=== PATIENT | female | born 1965 | race Caucasian/White ===

== ENCOUNTER 2016-11-21 09:23 | Outpatient (CLI) | payer BC ==
[2016-11-21 09:56] LABS: Bilirubin Negative (Negative); Blood, Urine Trace (Negative); Clarity Clear (Clear); Glucose, Urine (Dipstick) Negative (Negative); Leukocyte Negative (Negative); Nitrite Negative (Negative); Protein, Urine (Dipstick) Negative (Neg-Trace); Urobilinogen 0.2 mg/dL (0.2-1.0)
[2016-11-21 10:00] LABS: Hemoglobin 14.7 g/dL (12.0-16.0); Mean Corpuscular HGB CONC 33.7 g/dL (32.0-36.0); Mean Corpuscular Volume 91.8 fl (81.0-99.0); Mean Platelet Volume 6.2 fL (7.4-10.4); Platelet Count 273 thou/uL (130-400); RBC Distribution Width 12.1 % (11.5-14.5); Red Blood Cell (RBC) Count 4.74 mill/uL (4.20-5.40); White Blood Cell (WBC) Count 8.7 thou/uL (4.8-10.8)
[2016-11-21 10:02] LABS: Squamous Epithelial 0-3 HPF (0-3); WBC/HPF 0-3 HPF (0-3)
[2016-11-21 10:03] LABS: Bacteria/HPF 1+ HPF (None Seen)
[2016-11-21 10:07] LABS: ALT (SGPT) 26 U/L (8-55); AST (SGOT) 17 U/L (5-34); Albumin 4.2 g/dL (3.5-5.0); Alkaline Phosphatase 61 U/L (40-150); Anion Gap 14 mmol/L (10-20); BUN (Urea Nitrogen) 9 mg/dL (7.0-18.7); Bilirubin, Total 0.4 mg/dL (0.2-1.2); Calc. Creatinine Clearance 0 mL/min (70-130); Calcium 8.9 mg/dL (7.8-10.44); Carbon Dioxide 25 mmol/L (22-29); Chloride 106 mmol/L (98-107); Estimated GFR-MDRD 86; Globulin 3.1 g/dL (2.4-3.5); Glucose 98 mg/dL (70-105); Protein, Total 7.3 g/dL (6.0-8.3); Sodium 141 mmol/L (136-145)
--- NOTE | 2016-11-21 22:59 | CT ---
CT ABDOMEN AND PELVIS WITH CONTRAST 11/21/16 No prior scans were available for comparison. Spiral CT of the abdomen and pelvis was done after giv ing oral and IV contrast. Axial slices were acquired, then coronal and sagittal reconstructions were done. The lung bases are clear. The liver, spleen, and pancreas were unremarkable in appearance. The patie nt has had a prior cholecystectomy. The common bile duct seems slightly wider than is usually seen, measuring 1.3 cm in diameter as it approaches the pancreatic head. No abnormalities of the head were seen. No mass or hydronephrosis was seen in the kidneys. The aorta is normal in caliber. No free air or free fluid was seen in the abdomen. The bowel wall in the left colon through the sigm oid region seems slightly thicker than expected and there diverticula present. There is one area meaghan r the lower descending colon around the level of the iliac crest on the left where there might be a very small amount of pericolonic stranding, but the finding is borderline to suggest diverticulitis. The appearance of the bowel is such that it would not surprise me if she had had diverticulitis in the past. CT of the pelvis shows a 3 cm cystic structure in the left adnexa. An elective ultrasound should be done to better characterize this. Otherwise, no pelvic masses or fluid collections were seen. IMPRESSION: 1. Diverticulosis with mild diffuse thickening of bowel wall on the left side. There was one eq uivocal area for some stranding around colon at the junction of the lower descending colon and sigmo id. This could be indicative of minimal diverticulitis or could be stranding from prior inflammatory events. 2. Mildly prominent common bile duct without any overt causes. 3. 3 cm cystic area in the left adnexa. Ultrasound recommended to better characterize this. Code T POS: HOME
== END 2016-11-21 09:24 | disposition home or self-care (01) ==
LOC: BURCT 09:23
PROVIDERS: ATTEND Internal Medicine Gastroenterology
DX: R10.30 Lower abdominal pain, unspecified (principal); K57.30 Diverticulosis of large intestine without perforation or abscess without bleeding; N83.8 Other noninflammatory disorders of ovary, fallopian tube and broad ligament
CPT/HCPCS: 36415; 74177; 80053; 81001; 85027; 87040; 87086

== ENCOUNTER 2022-05-11 01:16 | Emergency (ER) | payer BC | END 2022-05-11 01:48 | disposition home or self-care (01) | LOC: BURERS 01:16 | DX: F41.9 Anxiety disorder, unspecified (principal); I10 Essential (primary) hypertension; Z79.899 Other long term (current) drug therapy | CPT/HCPCS: 99283 ==